=== PATIENT | male | born 1965 | race Caucasian/White ===

== ENCOUNTER 2018-08-27 16:12 | Emergency (ER) | payer OTHER ==
--- NOTE | 2018-08-27 16:36 | EDPHY ---
HPI/HX/ROS/PE/MDM Narrative: CHIEF COMPLAINT: Dyspnea, chest pain HPI: The patient is a 53 y/o male with a history palpitations arriving with his family member for evaluation of shortness of breath and chest pain onset about one hour ago. 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 This was associated with a mild "achy" pain along the left side of his chest and radiating into his left arm. He denies pleuritic pain. He's had milder forms of dyspnea like this previously he thinks may have been related to anxiety, but he does not feel particularly anxious today. He denies leg swelling or recent long distance travel or surgery. No history of blood clots, CAD, diabetes, or high cholesterol. He mentions his blood pressure has been "borderline." He does not take any medications. REVIEW OF SYSTEMS: A comprehensive 10 system review of systems is otherwise negative aside from elements mentioned in the history of present illness. PMH: Atrial flutter/bradycardia (remote), palpitations (ongoing), shoulder surgery SOCIAL HISTORY: Lives in [place]. Family member at bedside. PHYSICAL EXAM: General:Patient is alert, in no acute distress. ENT:Eyes are normal to inspection. ENT inspection normal. Neck: Normal inspection. Full range of motion. Respiratory:No respiratory distress. Breath sounds normal bilaterally. Cardiovascular: Regular rate and rhythm. Strong peripheral pulses. Normal cap refill. Abdomen:The abdomen is nontender to palpation. There are no peritoneal signs. Back: Normal to inspection. No tenderness to palpation. Skin: Normal color. No rash. Warm and dry. Extremities: Normal appearance. Full range of motion. Neuro: Oriented x3. Normal motor function. Normal sensory function. 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 His exam is unremarkable. Plan for standard chest pain work up including IV, labs, EKG, chest x-ray. The 12 lead EKG was interpreted by myself. See hard copy and/or "tracemaster" electronic copy for interpretation. Labs unremarkable. Chest x-ray: Negative Reassessed patient and discussed findings. Offered admission for further cardiac evaluation, but he declined. He will be discharged with standard care and follow up instructions. Return precautions discussed. He is comfortable with this plan. MDM: This patient presents with somewhat atypical chest pain. We performed an extensive workup in the ED which is negative. The patient's HEART score places him at low risk. He declines admission to the hospital or further observation for repeat troponin. I discussed the fact that etiology of his pain is unknown and that we are unable to fully rule out cardiac disease here in the ED. The patient requests to be discharged home and accepts referral to Cardiology. We discussed strict return precautions. - Data Points Imaging Results: Imaging Impressions Chest X-Ray 08/27/18 16:23 Impression: Normal chest. Imaging: I viewed and interpreted images myself Laboratory Results: Laboratory Results 08/27/18 16:28 08/27/18 16:28 08/27/18 08/27/18 08/27/18 16:29 16:28 16:28 WBC 5.82 10^3/uL 10^3/uL (3.80-9.50) RBC 5.33 10^6/uL 10^6/uL (4.40-6.38) Hgb 15.9 g/dL g/dL (13.7-17.5) Hct 45.9 % % (40.0-51.0) MCV 86.1 fL fL (81.5-99.8) MCH 29.8 pg pg (27.9-34.1) MCHC 34.6 g/dL g/dL (32.4-36.7) RDW 12.9 % % (11.5-15.2) Plt Count 212 10^3/uL 10^3/uL (150-400) MPV 10.0 fL fL (8.7-11.7) Neut % (Auto) 58.9 % % (39.3-74.2) Lymph % (Auto) 22.5 % % (15.0-45.0) Mccracken % (Auto) 15.5 % H % (4.5-13.0) Eos % (Auto) 1.9 % % (0.6-7.6) Baso % (Auto) 0.9 % % (0.3-1.7) Nucleat RBC Rel Count 0.0 % % (0.0-0.2) Absolute Neuts (auto) 3.43 10^3/uL 10^3/uL (1.70-6.50) Absolute Lymphs (auto) 1.31 10^3/uL 10^3/uL (1.00-3.00) Absolute Monos (auto) 0.90 10^3/uL H 10^3/uL (0.30-0.80) Absolute Eos (auto) 0.11 10^3/uL 10^3/uL (0.03-0.40) Absolute Basos (auto) 0.05 10^3/uL 10^3/uL (0.02-0.10) Absolute Nucleated RBC 0.00 10^3/uL 10^3/uL (0-0.01) Immature Gran % 0.3 % % (0.0-1.1) Immature Gran # 0.02 10^3/uL 10^3/uL (0.00-0.10) Sodium 138 mEq/L mEq/L (135-145) Potassium 3.7 mEq/L mEq/L (3.5-5.2) Chloride 106 mEq/L mEq/L (97-110) Carbon Dioxide 24 mEq/l mEq/l (22-31) Anion Gap 8 mEq/L mEq/L (6-14) BUN 19 mg/dL mg/dL (7-23) Creatinine 0.9 mg/dL mg/dL (0.7-1.3) Estimated GFR > 60 Glucose 99 mg/dL mg/dL (70-100) Calcium 9.6 mg/dL mg/dL (8.5-10.4) POC Troponin I 0.00 ng/mL ng/mL (0.00-0.08) Point of Care Test Results: Chemistry 08/27/18 16:29 POC Troponin I 0.00 ng/mL ng/mL (0.00-0.08) General Time Seen by Provider: 08/27/18 16:18 Initial Vital Signs: Initial Vital Signs Temperature (C) 36.7 C 08/27/18 16:13 Heart Rate 82 08/27/18 16:13 Respiratory Rate 18 08/27/18 16:13 Blood Pressure 179/107 H 08/27/18 16:13 O2 Sat (%) 96 08/27/18 16:13 O2 Delivery Mode Room Air Allergies/Adverse Reactions: Penicillins Allergy (Verified 08/27/18 16:13) Home Medications: Medication Instructions Recorded NK [No Known Home Meds] 08/27/18 Departure - Departure Disposition: Home, Routine, Self-Care Clinical Impression: Chest pain Qualifiers: Chest pain type: other chest pain Qualified Code(s): R07.89 - Other chest pain Condition: Good Instructions: Chest Pain (ED) Additional Instructions: Follow up with trolley wire installer in the next week. You've been referred to Dr. Fowler locally if needed. Return to the ED for any worsening of condition. Referrals: Damian Fowler MD [Medical Doctor] - As per Instructions Report Scribed for: Olman You Report Scribed by: Neha Tony Date of Report: 08/27/18 Time of Report: 16:27 Physician Review and Approval Statement: Portions of this note were transcribed by an ED scribe. I personally performed the history, physical exam, and medical decision making; and confirm the accuracy of the information in the transcribed note.
[2018-08-27 16:40] LABS: PLATELET COUNT 212 10^3/uL (150-400)
[2018-08-27 17:17] VITALS: BP 156/100
--- NOTE | 2018-08-29 18:11 | CPEKG ---
Test Reason : OPEN Blood Pressure : / mmHG Vent. Rate : 087 BPM Atrial Rate : 085 BPM P-R Int : 143 ms QRS Dur : 113 ms QT Int : 384 ms P-R-T Axes : 049 102 -02 degrees QTc Int : 462 ms Sinus rhythm Multiple ventricular premature complexes Confirmed by Yady Bowers ([id number]) on 08/29/2018 6:10:47 PM Referred By: Olman You Confirmed By:Yady Bowers
== END 2018-08-27 17:17 | disposition home or self-care (01) ==
DX: R07.89 Other chest pain (principal); R06.09 Other forms of dyspnea
CPT/HCPCS: 84484-ER